=== PATIENT | female | born 1970 | race Caucasian/White ===

== ENCOUNTER → 2017-03-10 | Outpatient (CLI) | payer BC | LOC: MAMO 03-04 10:20 | DX: Z12.31 Encounter for screening mammogram for malignant neoplasm of breast (principal); Z90.710 Acquired absence of both cervix and uterus | CPT/HCPCS: G0202 ==

== ENCOUNTER → 2020-11-07 | Outpatient (CLI) | payer OTHER ==
[~2020-11-07] MED LIST: ESTRADIOL1 MG PO; FLUVOXAMINE MA100 MG PO; FLUVOXAMINE MAL50 MG PO; HYDROCODON-ACE1 EAC2 PO; MACROBID 100 M100 MG PO; NEURONTIN600 MG PO; PYRIDIUM200 MG PO; SEROQUEL25 MG PO; VENTOLIN HFA 66.7 GM INH; VITAMIN C 500500 MG PO
[2020-11-07 10:11] LABS: RED BLOOD COUNT 4.2 M/UL (4.00-5.10); WHITE BLOOD COUNT 7.8 K/UL (4.5-11.0)
[2020-11-07 10:41] LABS: BUN/CREATININE RATIO 18 (0-10)
== END ==
LOC: OPSV2 10-31 10:00
PROVIDERS: Podiatrist Foot & Ankle Surgery
DX: Z01.812 Encounter for preprocedural laboratory examination (principal); M19.072 Primary osteoarthritis, left ankle and foot
CPT/HCPCS: 36415; 80048; 85027

== ENCOUNTER → 2020-11-07 | Outpatient (CLI) | payer OTHER | LOC: MAMO 08:48 | DX: Z12.31 Encounter for screening mammogram for malignant neoplasm of breast (principal); Z90.710 Acquired absence of both cervix and uterus | CPT/HCPCS: 36415; 77063; 77067; 80048; 85027 ==

== ENCOUNTER → 2020-11-13 | Outpatient (CLI) | payer OTHER | LOC: EXRD 11:43 | DX: Z01.818 Encounter for other preprocedural examination (principal); J43.9 Emphysema, unspecified | CPT/HCPCS: 71046 ==

== ENCOUNTER → 2020-11-15 | Day surgery (SDC) | payer OTHER ==
[~2020-11-15] VITALS: Ht 170.2 cm; Wt 77.6 kg
[2020-11-15 06:32] LABS: HEMOGLOBIN 13.4 gm/dl (12.3-15.3); RED BLOOD COUNT 4.29 M/UL (4.00-5.10); WHITE BLOOD COUNT 8.1 K/UL (4.5-11.0)
[2020-11-15 06:54] LABS: BUN/CREATININE RATIO 15 (0-10)
== END | disposition home or self-care (01) ==
LOC: OR 05:56
PROVIDERS: Podiatrist Foot & Ankle Surgery
DX: M19.072 Primary osteoarthritis, left ankle and foot (principal); M21.612 Bunion of left foot; M72.2 Plantar fascial fibromatosis; G89.29 Other chronic pain; M54.42 Lumbago with sciatica, left side; M51.37 Other intervertebral disc degeneration, lumbosacral region; M48.061 Spinal stenosis, lumbar region without neurogenic claudication; M50.90 Cervical disc disorder, unspecified, unspecified cervical region; S86.019A Strain of unspecified Achilles tendon, initial encounter; M25.552 Pain in left hip; F41.9 Anxiety disorder, unspecified; F32.9 Major depressive disorder, single episode, unspecified; E04.2 Nontoxic multinodular goiter; R03.0 Elevated blood-pressure reading, without diagnosis of hypertension; M43.16 Spondylolisthesis, lumbar region; R53.83 Other fatigue; G47.00 Insomnia, unspecified; H69.92 Unspecified Eustachian tube disorder, left ear; K58.9 Irritable bowel syndrome, unspecified; N95.9 Unspecified menopausal and perimenopausal disorder; M62.838 Other muscle spasm; K59.03 Drug induced constipation; T40.2X5A Adverse effect of other opioids, initial encounter; E55.9 Vitamin D deficiency, unspecified; F17.299 Nicotine dependence, other tobacco product, with unspecified nicotine-induced disorders; Z79.899 Other long term (current) drug therapy; Z95.5 Presence of coronary angioplasty implant and graft
CPT/HCPCS: 36415; 73630; 76000; 80048; 85027; C1776; J0690; J1885; J2001; J2250; J2405; J2704; J2795; J3010; J3370; J7120; Q4133

== ENCOUNTER → 2021-01-01 | Outpatient (CLI) | payer OTHER | LOC: KOH-I 09:02 | DX: S92.312D Displaced fracture of first metatarsal bone, left foot, subsequent encounter for fracture with routine healing (principal); X58.XXXD Exposure to other specified factors, subsequent encounter | CPT/HCPCS: 73630 ==

== ENCOUNTER → 2021-01-22 | Outpatient (CLI) | payer OTHER | LOC: KOH-I 08:49 | DX: Z47.2 Encounter for removal of internal fixation device (principal); Z96.662 Presence of left artificial ankle joint | CPT/HCPCS: 73630 ==

== ENCOUNTER → 2021-03-19 | Outpatient (CLI) | payer OTHER | LOC: KOH-I 08:28 | DX: M25.572 Pain in left ankle and joints of left foot (principal) | CPT/HCPCS: 73630 ==

== ENCOUNTER → 2021-05-01 | Outpatient (CLI) | payer OTHER | LOC: KOH-I 08:35 | DX: M79.672 Pain in left foot (principal); Z98.890 Other specified postprocedural states | CPT/HCPCS: 73630 ==

== ENCOUNTER → 2021-06-29 | Outpatient (CLI) | payer OTHER | LOC: KOH-I 11:57 | DX: M54.5 Low back pain (principal); Z98.1 Arthrodesis status; M43.16 Spondylolisthesis, lumbar region; M47.816 Spondylosis without myelopathy or radiculopathy, lumbar region | CPT/HCPCS: 72100 ==

== ENCOUNTER → 2021-08-17 | Outpatient (CLI) | payer OTHER | LOC: EXRD 10:11 | DX: J43.9 Emphysema, unspecified (principal); R06.02 Shortness of breath | CPT/HCPCS: 71046 ==

== ENCOUNTER → 2021-10-15 | Outpatient (CLI) | payer OTHER | LOC: KOH-I 12:41 | DX: D34 Benign neoplasm of thyroid gland (principal); E04.1 Nontoxic single thyroid nodule | CPT/HCPCS: 76536 ==

== ENCOUNTER → 2021-12-13 | Outpatient (CLI) | payer OTHER | LOC: EXRD 10:39 | DX: U07.1 COVID-19 (principal); R05.9 Cough, unspecified; J43.9 Emphysema, unspecified; R06.02 Shortness of breath | CPT/HCPCS: 71046 ==

== ENCOUNTER → 2022-04-18 | Outpatient (CLI) | payer OTHER | LOC: MAMO 08:18 | DX: Z12.31 Encounter for screening mammogram for malignant neoplasm of breast (principal) | CPT/HCPCS: 77063; 77067 ==

== ENCOUNTER → 2022-05-20 | Outpatient (CLI) | payer OTHER | LOC: US 11:41 | DX: R92.8 Other abnormal and inconclusive findings on diagnostic imaging of breast (principal) | CPT/HCPCS: 76641-RT; 77065; G0279 ==

== ENCOUNTER → 2022-07-04 | Outpatient (CLI) | payer OTHER | LOC: EXRD 11:18 | DX: M25.561 Pain in right knee (principal); M25.562 Pain in left knee; M17.0 Bilateral primary osteoarthritis of knee | CPT/HCPCS: 73564 ==